=== PATIENT | male | born 1985 | race American Indian/Alaskan Native ===

== ENCOUNTER 2021-07-17 23:00 | Emergency (ER) | payer SELFPAY ==
[2021-07-18 00:37] VITALS: BP 164/94
--- NOTE | 2021-07-18 01:26 | Emergency Department Report ---
HPI - General Chief Complaint: Skin/Abscess/Foreign Body Time Seen by Provider: 07/18/21 01:23 - HPI HPI: This is a 36-year-old -[place] male presents to the emergency department with an abscess/boil to the left inguinal groin that has been getting progressively worse over the past 3 days. He has pain and swelling to the area. No previous history of abscess formation or hidradenitis. No past medical history at all. He has not taken anything for symptoms prior to presentation. Currently he says his pain is 10 out of 10 in intensity. No known aggravating or alleviating factors other than it worsens with palpation. ED Past Medical Hx - Past Medical History Previous Medical History?: No - Surgical History Past Surgical History?: Yes Additional Surgical History: Bilateral Knee surgery. - Social History Smoking Status: Current Every Day Smoker Substance Use Type: Marijuana - Medications Home Medications: Home Medications Medication Instructions Recorded Confirmed Last Taken Type HYDROcodone/APAP 5-325 [[place] 1 each PO Q6HR PRN #10 tablet 07/18/21 Unknown Rx 5/325] Sulfamethoxazole/Trimethoprim 1 each PO BID #14 tablet 07/18/21 Unknown Rx [Bactrim DS TAB] ED Review of Systems ROS: Stated complaint: BOIL PUBIC AREA Other details as noted in HPI Comment: All other systems reviewed and negative Constitutional: denies: chills, fever Gastrointestinal: denies: abdominal pain Genitourinary: denies: dysuria, discharge, testicular pain Musculoskeletal: denies: back pain, arthralgia Skin: lesions (left inguinal abscess) Physical Exam - Physical Exam Vital Signs: Vital Signs 07/18/21 00:34 Temperature 98.8 F Pulse Rate 99 H Respiratory 18 Rate Blood Pressure 164/94 O2 Sat by Pulse 99 Oximetry Physical Exam: GENERAL: The patient is well-developed well-nourished. HENT: Normocephalic. Atraumatic. Patient has moist mucous membranes. EYES: Extraocular motions are intact. NECK: Supple. Trachea is midline. CHEST/LUNGS: Clear to auscultation. There is no respiratory distress noted. HEART/CARDIOVASCULAR: Regular. There is no tachycardia. There is no murmur. ABDOMEN: Abdomen is soft, nontender. Patient has normal bowel sounds. SKIN: Skin is warm and dry. There is a tender, fluctuant, abscess to the left inguinal groin. It is about 3 inches in its greatest diameter. NEURO: The patient is awake, alert, and oriented. The patient is cooperative. The patient has no focal neurologic deficits. Normal speech. MUSCULOSKELETAL: There is no tenderness or deformity. There is no limitation range of motion. ED Course Vital Signs 07/18/21 00:34 Temperature 98.8 F Pulse Rate 99 H Respiratory 18 Rate Blood Pressure 164/94 O2 Sat by Pulse 99 Oximetry - I & D Left Groin Type of Procedure: Simple Site: Left inguinal groin Blade Size: 11 I & D Procedure: betadine prep, sterile drapes applied, sterile dressing applied Progress: 3 cc of 1% lidocaine were used to locally anesthetize the abscess. An 11 blade scalpel was used to make a 2 cm incision. Using manual pressure there was removal of about 10 cc of purulent discharge. Less than 2 cc of blood loss. There was not a lot of room for iodoform gauze packing. Sterile gauze was placed. No obvious complications from this procedure. ED Medical Decision Making - Medical Decision Making Patient presents with a left inguinal groin abscess. An incision and drainage was done as per the procedure section. There was not a lot of room for iodoform gauze packing. We discussed cleaning with soap and water and then keeping the area dry other than soaking in a warm tub or using warm compresses. The patient has been given a prescription for antibiotics. Vital signs reassuring throughout his ED course including being afebrile. Critical Care Time: No Critical care attestation.: If time is entered above; I have spent that time in minutes in the direct care of this critically ill patient, excluding procedure time. ED Disposition Clinical Impression: Abscess of groin, left Disposition: 01 HOME / SELF CARE / HOMELESS Is pt being admited?: No Condition: Stable Instructions: Skin Abscess, Incision and Drainage, Care After Additional Instructions: Please follow-up with a primary care physician in the next few days. I have given you a referral for a local primary care physician, Dr. Sierra, and a primary care clinic, [facility]. Clean the area with soap and water and then make sure it remains dry. Either soak in a warm, not hot, bath, or use warm compresses to try and express any further infection from the abscess. Take the medications as prescribed. You have been prescribed a medication that is sedating and therefore should not be taken prior to driving, working, and responsible for children and in no way should be mixed with alcohol of any quantity. Return to the closest emergency department with any worsening of your symptoms, increased pain, increased swelling, development of fever, or with any acute distress. Prescriptions: Sulfamethoxazole/Trimethoprim [Bactrim DS TAB] 1 each PO BID #14 tablet HYDROcodone/APAP 5-325 [[place] 5/325] 1 each PO Q6HR PRN #10 tablet PRN Reason: Pain Referrals: BENNY SIERRA MD [Staff Physician] - 2-3 Days [facility] [Provider Group] - 2-3 Days Time of Disposition: 02:42
[2021-07-18] MEDS ORDERED: LIDOCAINE-MPF (1%) 10 MG/1 ML VIAL 5 ML INFILTRATI ONE (03:24)
[2021-07-18] MEDS ORDERED: SULFAMETHOXAZOLE/TRIMETHOPRIM 800/160MG DS TAB PO ONE (03:39)
== END 2021-07-18 03:26 | disposition home or self-care (01) ==
LOC: ED 23:00
DX: L02.211 Cutaneous abscess of abdominal wall (principal); F17.210 Nicotine dependence, cigarettes, uncomplicated; F11.90 Opioid use, unspecified, uncomplicated
CPT/HCPCS: 99282